=== PATIENT | female | born 1985 | race Caucasian/White ===

== ENCOUNTER 2021-10-22 07:46 | Emergency (ER) | payer MEDICAID ==
[~2021-10-22] VITALS: Ht 162.6 cm; Wt 76.2 kg
[2021-10-22 07:50] VITALS: BP_SYST 117
--- NOTE | 2021-10-22 07:55 | NUR ---
Placed in room 6 . Placed on air sampling and monitoring, blood pressure machine and pulse oximeter. To gown for exam. Side rails up. Report given to BRENT DIXON.
--- NOTE | 2021-10-22 08:01 | NUR ---
DR BELCHER AT BEDSIDE FOR EXAM
--- NOTE | 2021-10-22 08:02 | NUR ---
LAB AT THE BEDSIDE FOR BLOOD DRAW
--- NOTE | 2021-10-22 08:05 | NUR ---
RECEIVED PT AAOX4. WITH C/O EAR PAIN. PT STATED EYE FLUSH FLUID GOT INTO HER EAR, SHE FLUSHED IT AND IT CAUSE MORE PAIN. SHE STATES R EAR PAIN 08/29. NO OTHER DISTRESS NOTED. PT PLACED IN BED 3. SIDERAILS UP X2. Addendum: 10/22/21 at 0815 by [email or web address] WRONG PT
--- NOTE | 2021-10-22 08:12 | NUR ---
DR. BELCHER AT BEDSIDE TO EXAM EAR. EVERY LOOKS FINE, EDUCATION GIVEN AND PT INFORMED SHE WILL BE DISCHARGED. PT AGREED WITH POC. Addendum: 10/22/21 at 0817 by [email or web address] WRONG PT
[2021-10-22 08:18] LABS: BASOPHILS % (AUTO) 0.5 % (0.0-2.0); EOSINOPHILS # (AUTO) 0.2 K/uL (0.0-0.4); EOSINOPHILS % (AUTO) 2.9 % (0.0-4.0); HEMATOCRIT 36.6 % (36-48); HEMOGLOBIN 12.5 g/dL (12.0-16.0); LYMPHOCYTES # (AUTO) 2.1 K/uL (1.0-5.5); LYMPHOCYTES % (AUTO) 27.5 % (20.5-51.5); MEAN CORPUSCULAR HEMOGLOBIN 31 pg (27-31); MEAN CORPUSCULAR HGB CONC 34 % (32-36); MEAN CORPUSCULAR VOLUME 92 fL (79.0-98.0); MONOCYTES # (AUTO) 0.3 K/uL (0.0-1.0); MONOCYTES % (AUTO) 3.9 % (1.7-9.3); NEUTROPHILS % (AUTO) 65.2 % (40.0-70.0); PLATELET COUNT (AUTO) 277 K/uL (130-430); RED CELL DISTRIBUTION WIDTH 13.6 % (9.0-15.0); WHITE BLOOD COUNT (AUTO) 7.7 K/uL (4.8-10.8)
--- NOTE | 2021-10-22 08:21 | NUR ---
FIANCEE AT BEDSIDE PER PT'S REQUEST.
[2021-10-22 09:18] LABS: BILIRUBIN,URINE NEGATIVE (NEGATIVE); BLOOD, URINE NEGATIVE (NEGATIVE); COLOR,URINE YELLOW (YELLOW); GLUCOSE,URINE NEGATIVE (NEGATIVE); KETONES,URINE NEGATIVE (NEGATIVE); LEUKOCYTE ESTERASE ,URINE NEGATIVE (NEGATIVE); NITRITE, URINE NEGATIVE (NEGATIVE); PROTEIN URINE NEGATIVE (NEGATIVE); UROBILINOGEN,URINE 0.2 (0.2-1.0)
[2021-10-22 10:24] LABS: CLARITY/URINE CLEAR (CLEAR)
--- NOTE | 2021-10-22 11:05 | NUR ---
Notified ED Admitting regarding Dr. Velásquez's request for admission/transfer. Per Dr. Velásquez, pt is stable for transfer. Will contact insurance sales specialist regarding this matter. PER [facility]: [facility]
--- NOTE | 2021-10-22 11:11 | NUR ---
CHAPEROED PELVIC EXAM WITH DR BELCHER, PT TOLERATED WELL..
--- NOTE | 2021-10-22 11:31 | NUR ---
Mari, [facility] showcase trimmer, spoke to BRENT Sawyer regarding pt status. Requested fax of facesheet and clinicals. fax: [phone] attn: [email or web address]
--- NOTE | 2021-10-22 12:24 | NUR ---
DR BELCHER SPEAKING WITH DR SHAFFER.
--- NOTE | 2021-10-22 13:15 | NUR ---
Patient given written and verbal discharge instructions and verbalizes understanding. ER MD discussed with patient the results and treatment provided. Patient in stable condition. ID arm band removed. Patient educated on pain management and to follow up with PMD. Pain Scale [0]. Opportunity for questions provided and answered. Medication side effect fact sheet provided.
[2021-10-22 14:53] VITALS: BP_SYST 117
== END 2021-10-22 13:15 | disposition home or self-care (01) ==
LOC: SED 07:46
DX: O20.0 Threatened abortion (principal); Z3A.01 Less than 8 weeks gestation of pregnancy; Z91.018 Allergy to other foods
CPT/HCPCS: 36415; 76856-TC; 81003; 84702; 85025; 86900; 86901; 87110; 87210-TC; 99284

== ENCOUNTER 2021-10-24 08:56 | Emergency (ER) | payer MEDICAID ==
[~2021-10-24] VITALS: Ht 162.6 cm; Wt 76.2 kg
[2021-10-24 09:07] VITALS: BP_SYST 112
--- NOTE | 2021-10-24 09:13 | NUR ---
Triaged pt and placed in waiting room until bed becomes available. Pt coming from home accompanied by . Pt c/o cramping and vaginal bleeding for a couple days and states she was here in the ER a couple days ago and is here today for a follow up check up. Pt has hx of DM, Hyperlipidemia, and Bipolar Disorder. Allergic to coconut. Ambulatory with steady gait. Skin intact. A&Ox4.
--- NOTE | 2021-10-24 09:15 | NUR ---
Dr. Richards assessing pt in triage room.
[2021-10-24 10:54] LABS: BILIRUBIN,URINE NEGATIVE (NEGATIVE); BLOOD, URINE 2+ (NEGATIVE); COLOR,URINE YELLOW (YELLOW); GLUCOSE,URINE NEGATIVE (NEGATIVE); KETONES,URINE NEGATIVE (NEGATIVE); LEUKOCYTE ESTERASE ,URINE NEGATIVE (NEGATIVE); NITRITE, URINE NEGATIVE (NEGATIVE); PH,URINE 6.5 (5.0-8.0); PROTEIN URINE NEGATIVE (NEGATIVE); UROBILINOGEN,URINE 0.2 (0.2-1.0)
[2021-10-24 11:00] LABS: CLARITY/URINE HAZY (CLEAR)
[2021-10-24 11:22] LABS: BACTERIA,URINE FEW /HPF (None Seen)
--- NOTE | 2021-10-24 12:15 | NUR ---
Pt coming from home accompanied by . CC vaginal bleeding R/T abdominal cramping and hx of cysts.Pt states was in ER 6 days ago and was told to return for a follow up check up. Ambulatory with steady gait. Skin intact. A&Ox4. Pt denies N/V, NAD PMHx DM, Hyperlipidemia, and Bipolar Disorder. Allergic to coconut.
[2021-10-24 12:36] LABS: HCG,QUAL RESULT POSITIVE (NEGATIVE)
[2021-10-24] MEDS ORDERED: CEPH-548 PO (12:43)
[2021-10-24 12:53] VITALS: BP_SYST 128
--- NOTE | 2021-10-24 12:53 | NUR ---
Patient given written and verbal discharge instructions and verbalizes understanding. ER MD discussed with patient the results and treatment provided. Patient in stable condition. ID arm band removed. Rx of Cephalexin given. Patient educated on pain management and to follow up with PMD. Pain Scale 0/10. Opportunity for questions provided and answered. Medication side effect fact sheet provided.
== END 2021-10-24 12:52 | disposition home or self-care (01) ==
LOC: SED 08:56
DX: O20.0 Threatened abortion (principal); Z3A.01 Less than 8 weeks gestation of pregnancy
CPT/HCPCS: 36415; 76801; 76817; 81000; 84702; 84703; 99284